=== PATIENT | male | born 1955 ===

== ENCOUNTER 2022-01-03 11:20 | Emergency (ER) | payer MEDICARE, BC ==
[2022-01-03] MEDS ORDERED: Sodium Chloride 0.9% 10 ML Syringe FLUSH PRN (11:22)
[2022-01-03 12:05] LABS: CHLORIDE,CL 96 mmol/L (98-107); SODIUM,NA 132 mmol/L (136-145)
[2022-01-03] MEDS ORDERED: Sodium Chloride 0.9% 1,000 ML IV ONE (12:12)
[2022-01-03] MEDS ORDERED: Iopamidol 755 Mg/ML 100 ML Bottle IVPUSH ONE (12:13)
[2022-01-03] MEDS ORDERED: Dexamethasone 4 MG/ML SDV IVPUSH ONE (12:54)
== END 2022-01-03 13:59 | disposition home or self-care (01) ==
LOC: DL.ED 11:20
DX: U07.1 COVID-19 (principal); R09.02 Hypoxemia; I25.10 Atherosclerotic heart disease of native coronary artery without angina pectoris; I10 Essential (primary) hypertension; M06.9 Rheumatoid arthritis, unspecified; Z88.5 Allergy status to narcotic agent; Z79.82 Long term (current) use of aspirin; Z79.899 Other long term (current) drug therapy
CPT/HCPCS: 36415; 71260; 80053; 83605; 86140; 96374; 99284; J1100; J7030; Q9967

== ENCOUNTER 2022-01-07 10:02 | Emergency (ER) | payer MEDICARE, BC ==
[2022-01-07] MEDS ORDERED: Albuterol 6.7 GM Inhaler INH ONE (10:53)
[2022-01-07] MEDS ORDERED: Dexamethasone 4 MG/ML SDV IVPUSH ONE (10:53)
[2022-01-07] MEDS ORDERED: Dexamethasone 4 MG/ML SDV IM ONE (11:17)
[2022-01-07 11:57] LABS: CHLORIDE,CL 97 mmol/L (98-107); SODIUM,NA 132 mmol/L (136-145)
[2022-01-07 11:58] LABS: ANION GAP 13.6 mEq/L (7-13)
== END 2022-01-07 12:55 | disposition home or self-care (01) ==
LOC: DL.ED 10:02
DX: J44.1 Chronic obstructive pulmonary disease with (acute) exacerbation (principal); U07.1 COVID-19; Z86.16 Personal history of COVID-19; Z88.5 Allergy status to narcotic agent; Z79.82 Long term (current) use of aspirin; Z79.899 Other long term (current) drug therapy
CPT/HCPCS: 36415; 71045; 80053; 83605; 85025; 85379; 86140; 93005; 96372; 99285-25; A9270-GY; J1100